=== PATIENT | female | born 1975 ===

== ENCOUNTER → 2024-08-16 | Outpatient (CLI) | payer BC ==
[~2024-08-16] MED LIST: LISI5 PO
== END ==
LOC: LAB SHORT 07:19 → LAB 07:19
DX: N84.1 Polyp of cervix uteri (principal)
CPT/HCPCS: 88305

== ENCOUNTER → 2024-09-05 | Outpatient (CLI) | payer BC ==
[2024-09-05 14:59] LABS: Source, Urine Clean Catch
[2024-09-05 18:20] LABS: Bilirubin, Urine Neg (Neg); Blood, Urine 4+ (Neg); Glucose Qualitative, Urine Neg (Neg); Ketones, Urine Neg (Neg); Leukocyte Esterase, Urine 3+ (Neg); Nitrite, Urine Neg (Neg); Protein, Urine Neg (Neg); Urobilinogen, Urine NORM (Normal); pH, Urine 6.5 (5.0-8.0)
[2024-09-05 18:38] LABS: Appearance, Urine Hazy (Clear); Color, Urine Pale Yellow (P-Yellow)
[2024-09-05 18:41] LABS: Bacteria Mod /hpf; Squamous Epithelial Cells Few /hpf (Few)
== END | disposition home or self-care (01) ==
LOC: LAB 14:56 → LAB SHORT 14:56
PROVIDERS: Obstetrics & Gynecology
DX: Z01.812 Encounter for preprocedural laboratory examination (principal)
CPT/HCPCS: 81001; 87086

== ENCOUNTER 2024-09-06 06:23 | Day surgery (SDC) | payer BC ==
[~2024-09-06] VITALS: Ht 160 cm; Wt 80.4 kg
[~2024-09-06 06:23] MED LIST changes: -LISI5 PO; +Lactated Ringer's 1,000 ML IV ONE
[2024-09-06] MEDS ORDERED: LISI5 PO (06:43)
[2024-09-06] MEDS ORDERED: Lactated Ringer's 1,000 ML IV ONE ×4 (06:55→10:06)
[2024-09-06] MEDS ORDERED: Ropivacaine 0.5% HCL/PF 5 MG/ML 30ML Vial ONE (07:06)
[2024-09-06] MEDS ORDERED: Midazolam HCl 1MG / ML 2ML Vial ONE (07:09)
[2024-09-06] MEDS ORDERED: Dexamethasone Sod Phos 10 MG/ML 1ML VIAL ONE (07:16)
[2024-09-06] MEDS ORDERED: propofoL 20 ML IV ONE (07:16)
[2024-09-06] MEDS ORDERED: FentaNYL Citrate 50 MCG/ML 2 ML Injection ONE (07:16)
[2024-09-06] MEDS ORDERED: Ketorolac Tromethamine 30mg Vial ONE (07:16)
[2024-09-06] MEDS ORDERED: Ondansetron HCl 2 MG / ML 2ML Vial ONE (07:16)
--- NOTE | 2024-09-06 07:31 | NUR ---
09/06/24 0731 Stephany Mcallister 0.15 ML OF EPI (1MG/ML) ADDED TO ROPIVACAINE 0.5% (150MG/30ML) TO MAKE ROPIVACAINE 0.5% WITH EPI 1:200,000 ON FIELD.
[2024-09-06] MEDS ORDERED: EPINEPhrine HCl 1 MG/ML 1ML Amp XX ONE ×2 (08:20)
[2024-09-06] MEDS ORDERED: Phenylephrine HCl 100 MCG/ML-NS 10MLSYR (1MG/10ML) ONE (08:29)
--- NOTE | 2024-09-06 08:56 | NUR ---
09/06/[address] AWARE OF PT HYPOTENSIVE NATURE. STATES SHE IS A BIT OF A LIGHT WEIGHT WERE ANESTHESIA IS CONCERNED. PT WAS PLACED ON 2ND BAG OF FLUIDS, LR, PT CAME OUT WITH ONLY 150LTC PT CONTINUES TO BE MONITORED CLOSELY, LMA STILL IN PLACE WITH O2 CONNECTED BY DR SAVAGE. 2 NURSE RECOVERY, NOT NEEDED BY BEING DILIGENT. WILL CONTINUE TO MONITOR. CURRENTLY, BP IS 88/49 (61), HOB LOWERED. HAVE NOT ATTEMPTED TO WAKE PT AT THIS TIME. ALLOWING PT MORE TIME TO RECOVER PRIOR TO WAKING. COLORING IS VERY GOOD. PT APPEARS VERY RESTFUL.
--- NOTE | 2024-09-06 09:53 | NUR ---
09/06/24 0953 KAREN AGGARWAL PT DOING WELL. CONTINUES TO DENY PAIN AND NAUSEA. STATES THAT SHE IS STARTING TO FEEL THOUGH SHE MAY TO URINATE SOON. PT SITTING AT BEDSIDE.
== END 2024-09-06 10:05 | disposition home or self-care (01) ==
LOC: ORSCSDS 06:23
PROVIDERS: Obstetrics & Gynecology
PROC: 0UBC7ZX Excision of Cervix, Via Natural or Artificial Opening, Diagnostic (ICD-10-PCS; principal; 2024-09-06 07:30)
DX: N84.1 Polyp of cervix uteri (principal); I10 Essential (primary) hypertension; E66.9 Obesity, unspecified; Z68.31 Body mass index [BMI] 31.0-31.9, adult; Z79.899 Other long term (current) drug therapy
CPT/HCPCS: 88305; J0171; J1100; J1885; J2250; J2371; J2405; J2704; J2795; J3010; J7120

== ENCOUNTER → 2025-02-27 | Outpatient (CLI) | payer BC ==
[~2025-02-27] MED LIST changes: +LISI5 PO; -Lactated Ringer's 1,000 ML IV ONE
[2025-02-27 18:37] LABS: Microalb/Creat Ratio UR, Rand 8.267 mg/g (0.000-30.000); Microalbumin, Random Urine 12.4 mg/L (0.000-20.000)
== END ==
LOC: LAB 15:31 → LAB SHORT 15:31
PROVIDERS: Family Medicine
DX: I10 Essential (primary) hypertension (principal)
CPT/HCPCS: 82043; 82570

== ENCOUNTER → 2025-03-26 | Outpatient (CLI) | payer BC ==
[2025-03-26 13:52] LABS: BASOPHILS ABSOLUTE AUTO 0.05 K/mm3 (0.00-0.23); BASOPHILS PERCENT AUTO 1 % (0-2); EOSINOPHILS ABSOLUTE AUTO 0.19 K/mm3 (0.00-0.68); EOSINOPHILS PERCENT AUTO 3 % (0-6); Hematocrit 40.8 % (33.0-51.0); Hemoglobin 14.1 g/dL (11.5-16.0); IMMATURE GRAN ABSOLUTE AUTO 0.04 K/mm3 (0.00-0.10); IMMATURE GRAN PERCENT AUTO 1 % (0-1); LYMPHOCYTES ABSOLUTE AUTO 2.07 K/mm3 (0.84-5.20); LYMPHOCYTES PERCENT AUTO 27 % (21-46); MONOCYTES ABSOLUTE AUTO 0.38 K/mm3 (0.16-1.47); MONOCYTES PERCENT AUTO 5 % (4-13); Mean Corpuscular HGB 30.3 pg (26.0-34.0); Mean Corpuscular HGB Conc 34.6 g/dL (31.5-36.5); Mean Corpuscular Volume 88 fL (80-100); Mean Platelet Volume 9.5 fL (9.1-12.4); NEUTROPHILS ABSOLUTE AUTO 4.84 K/mm3 (1.96-9.15); NEUTROPHILS PERCENT AUTO 64 % (41-73); Platelet Count 276 K/mm3 (150-400); RDW Coefficient Variation 12.7 % (11.7-14.2); RDW Standard Deviation 40.5 fL (35.1-46.3); Red Blood Cell Count 4.66 M/mm3 (3.80-5.20); White Blood Cell Count 7.57 K/mm3 (4.00-11.30)
[2025-03-26 15:14] LABS: Percent Saturation 23.1 % (15.0-50.0)
[2025-04-04 13:34] LABS: HPV HIGH RISK BY TMA Not Detected; HPV SOURCE Cervical/Vag
== END | disposition home or self-care (01) ==
LOC: LAB 11:13 → LAB SHORT 11:13
PROVIDERS: Obstetrics & Gynecology
DX: Z01.419 Encounter for gynecological examination (general) (routine) without abnormal findings (principal); D50.0 Iron deficiency anemia secondary to blood loss (chronic)
CPT/HCPCS: 36415; 82728; 83540; 83550; 85025; 87624; G0123

== ENCOUNTER → 2025-07-31 | Outpatient (CLI) | payer BC ==
[2025-07-31 21:08] LABS: Creatinine, Urine Random 119.0 mg/dL (27.00-270.00); Microalb/Creat Ratio UR, Rand 7.756 mg/g (0.000-30.000); Microalbumin, Random Urine 9.23 mg/L (0.000-20.000)
== END ==
LOC: LAB SHORT 11:57 → LAB 11:57
PROVIDERS: Family Medicine
DX: I10 Essential (primary) hypertension (principal)
CPT/HCPCS: 82043; 82570